=== PATIENT | male | born 1955 | race American Indian/Alaskan Native ===

== ENCOUNTER 2024-08-14 08:31 | Outpatient (CLI) | payer OTHER | END 2024-08-14 08:32 | disposition home or self-care (01) | LOC: CSHSLEEP 08:31 | PROVIDERS: ATTEND Family Medicine | DX: G47.33 Obstructive sleep apnea (adult) (pediatric) (principal); G47.10 Hypersomnia, unspecified; R53.83 Other fatigue; E66.9 Obesity, unspecified; Z68.36 Body mass index [BMI] 36.0-36.9, adult; R06.83 Snoring; G47.00 Insomnia, unspecified; I10 Essential (primary) hypertension; R09.02 Hypoxemia | CPT/HCPCS: 95800 ==